=== PATIENT | female | born 1980 | race Caucasian/White ===

== ENCOUNTER 2016-07-28 18:22 | Emergency (ER) | payer OTHER ==
[2016-07-28] MEDS ORDERED: predniSONE 20 MG TAB ONE (19:40)
[2016-07-28] MEDS ORDERED: ALPRAZolam 0.25 MG TAB ONE (19:42)
[2016-07-28] MEDS ORDERED: diphenhydrAMINE HCl 25 MG CAP ONE (19:47)
[2016-07-28] MEDS ORDERED: Azithromycin 250 MG TAB ONE (19:48)
--- NOTE | 2016-07-28 20:11 | ERRECORD ---
[facility] EMERGENCY RECORD HPI SORE THROAT (19:48 LLDO) CHIEF COMPLAINT: Patient presents for evaluation of sore throat, Patient presents for evaluation of see triage note. HISTORIAN: History provided by patient, History provided by patient's spouse. LOCATION: Symptoms are generalized. QUALITY: Pain is dull in nature, described as aching, described as swelling sensation. SEVERITY: Maximum severity of symptoms moderate, Currently symptoms are mild. TIME COURSE: Gradual onset of symptoms, Symptoms are worsening, are constant. ASSOCIATED WITH: No associated fever, No associated chills, No associated cough, No associated drooling, Associated with dysphagia, No associated dysphonia, No associated headache, No associated inability to open mouth, No associated inability to take oral fluids, No associated nasal discharge, No associated recent tooth extraction, No associated shortness of breath, No associated trauma, Associated with upper respiratory infection, No associated vomiting. EXACERBATED BY: Patient's condition exacerbated by activity, Patient's condition exacerbated by food. RELIEVED BY: Patient's condition relieved by cold fluids. ROS CONSTITUTIONAL: Historian denies chills, reports fatigue, denies fever. pt is extremely anxious. has been spending a lot of time on the web, looking up sx.. is terrified she is about to suffocate at any moment. (19:51 LLDO) EYES: Negative eye review of systems, Historian denies eye pain, denies eye redness, denies eye discharge. (19:59 LLDO) ENT: Historian denies drooling, denies dysphonia, reports sore throat. (19:51 LLDO) CARDIOVASCULAR: Historian denies dyspnea on exertion. (19:51 LLDO) RESPIRATORY: Historian denies cough, denies shortness of breath, denies sputum, denies stridor, denies wheezing. (19:51 LLDO) MUSCULOSKELETAL: Negative musculoskeletal review of systems, Historian denies arthralgias, denies back pain, denies injury, denies myalgias, denies neck pain. (19:59 LLDO) SKIN: Negative skin review of systems, Historian denies cellulitis, denies rash, denies skin changes, denies skin lesions. (19:59 LLDO) NEUROLOGIC: Historian denies confusion, denies dizziness, denies dysphasia, denies focal weakness, denies gait changes, denies headache, denies irritability, denies lethargy, denies mental status changes. (19:51 LLDO) HEMO/LYMPHATIC: Normal hematologic/lymphatic system review, Historian denies abnormal blood clotting, denies gum bleeding, denies petechiae. (19:59 LLDO) ALLERGIC/IMMUNOLOGIC: Normal allergy/immunologic system review, &a-1R&a+25V*p+0X*[id number]*c202B*c15G*c2P*p-0X&a-25V&a+1R Name: Joyce Parker : 1980 F36 MedRec: [id number] AcctNum: [id number] Prepared: Pinky Jul 28, 2016 20:18 by Interface Page 1 of 4 pMD [facility] EMERGENCY RECORD Historian denies eczema, denies environmental allergies, denies food allergies. (19:59 LLDO) PSYCHIATRIC: Historian reports anxiety, reports depression, reports emotional lability. (19:51 LLDO) NOTES: All systems reviewed, negative except as described above. (19:51 LLDO) PAST MEDICAL HISTORY MEDICAL HISTORY: Notes: HEP C WITH STAGE II CIRRHOSIS, Tetanus not up to date, Past medical history includes neurological disease, migraine headaches, OVARIAN CYST TO RIGHT OVARY, Notes: SEVERE SINUS "ISSUES". Hepatitis C. reviewed 07-28-16. (18:50 MCRS) FEMALE SURGICAL HISTORY: Surgical history of tubal ligation. D<LT>LT>AMP>C., upper GI and lower GI endoscopy, choleysystectomy on 01/08/2016. reviewed 07-28-16. (18:50 MCRS) PSYCHIATRIC HISTORY: Notes: BI-POLAR, anxiety. reviewed 07-28-16. (18:50 MCRS) SOCIAL HISTORY: Patient denies alcohol use, Patient is a former drug user, abused opiate, Patient currently uses tobacco, smokes cigarettes, daily, Patient has smoked for 25 years, Patient smokes 1 pack per day, Lives at home, with family, former vicodin user. 3 years ago. reviewed 07-28-16. (18:50 MCRS) FAMILY HISTORY: Family history is non-contributory to this case. (18:50 MCRS) NOTES: Nursing records reviewed, Agree with nursing records, Medication list reviewed. (19:59 LLDO) KNOWN ALLERGIES Penicillins CURRENT MEDICATIONS QUEtiapine: TABLET : Strength - 100 mg : ORAL Patient Dose: 1 tab(s) Oral once a day (at bedtime). (18:36 MCRS) lamoTRIgine: TABLET : Strength - 150 mg : ORAL Patient Dose: 1 tab(s) Oral once a day. (18:37 MCRS) VITAL SIGNS (18:29 MCRS) VITAL SIGNS: BP: 177/91 (Sitting), Pulse: 74, Resp: 24, Temp: 97.7 (Tympanic), Pain: 0, O2 sat: 100 on Room Air, Time: 07/28/2016 18:29. PHYSICAL EXAM CONSTITUTIONAL: Vital Signs Reviewed, Patient afebrile, Pulse normal, Blood pressure, BP ELEVATED, Respiratory rate, increased, 24, Patient appears, uncomfortable, Patient &a-1R&a+25V*p+0X*c4584K*c202B*c15G*c2P*p-0X&a-25V&a+1R Name: Joyce Parker : 1980 F36 MedRec: [id number] AcctNum: [id number] Prepared: [facility] Jul 28, 2016 20:18 by Interface Page 2 of 4 pMD [facility] EMERGENCY RECORD appears, in mild pain distress, Patient alert and oriented to person, place and time, Nursing notes reviewed. (19:55 LLDO) HEAD: Head exam normal, Head exam included findings of head atraumatic, normocephalic. (19:59 LLDO) EYES: Eye exam normal, Eye exam included findings of eyelids normal to inspection, Pupils equally round and reactive to light, Extraocular muscles intact. (19:59 LLDO) ENT: Ear exam normal, Nose exam normal, Pharynx, injected bilaterally, with swelling bilaterally, symmetrical, Uvula exam normal, Tonsil exam normal, not enlarged, no exudates, Mouth exam normal, Sinus exam included findings of frontal sinuses normal, maxillary sinuses normal, upper airway wide open with no indication of any dangerous swelling or potential airway closure. (19:55 LLDO) NECK: Neck exam included findings of normal range of motion, Trachea midline, Thyroid normal, no meningeal signs, Cervical adenopathy, diffuse, multiple nodes, tender, swollen. (19:55 LLDO) RESPIRATORY CHEST: Respiratory exam included findings of no respiratory distress, Breath sounds clear, Chest exam included findings of chest movement symmetrical, Chest expansion equal. (19:55 LLDO) BACK: Back exam normal, Back exam included findings of normal inspection, range of motion normal. (19:59 LLDO) UPPER EXTREMITY: Upper extremity exam normal, Upper extremity exam included findings of inspection normal, Range of motion normal. (19:59 LLDO) LOWER EXTREMITY: Lower extremity exam normal, Lower extremity exam included findings of inspection normal, Range of motion normal. (19:59 LLDO) NEURO: Neuro exam normal, Neuro exam findings include patient oriented to person, place and time, Speech normal, [place] coma scale 15. (19:59 LLDO) SKIN: Skin exam normal, Skin exam included findings of skin warm, dry, and normal in color, no rash. (19:59 LLDO) PSYCHIATRIC: Psychiatric exam normal, Psychiatric exam included findings of patient oriented to person place and time, Normal affect. (19:59 LLDO) MEDICATION ADMINISTRATION SUMMARY Drug Name: methylPREDNISolone acetate, Dose Ordered: 80 mg, Route: Intramuscular, Status: Given, Time: 19:59 07/28/2016, Drug Name: Xanax, Dose Ordered: 2 mg, Route: Oral, Status: Given, Time: 19:59 07/28/2016, Drug Name: predniSONE oral, Dose Ordered: 60 mg, Route: Oral, Status: Given, Time: 19:58 07/28/2016, Drug Name: Zithromax oral, Dose Ordered: 500 mg, Route: Oral, Status: Given, Time: 19:58 07/28/2016, &a-1R&a+25V*p+0X*u7626G*c202B*c15G*c2P*p-0X&a-25V&a+1R Name: Keith Joyce P : 1980 F36 MedRec: [id number] AcctNum: [id number] Prepared: Pinky Jul 28, 2016 20:18 by Interface Page 3 of 4 pMD [facility] EMERGENCY RECORD Drug Name: Benadryl oral, Dose Ordered: 50 mg, Route: Oral, Status: Given, Time: 19:57 07/28/2016, Detailed record available in Medication Service section. PROBLEM LIST No recorded problems DIAGNOSIS (19:44 LLDO) FINAL: PRIMARY: Acute pharyngitis, ADDITIONAL: ACUTE STRESS REACTION. PRESCRIPTION (19:46 LLDO) Ativan oral: TABLET : 1 mg : ORAL : Quantity: 1 Unit: tab(s) Route: ORAL Schedule: every 8 hours PRN Dispense: 30 Unit: tab(s) May substitute. Refills: No Refills . NOTES: No Refills. predniSONE oral: TABLET : 20 mg : ORAL : Quantity: * Unit: Route: ORAL Schedule: See Notes Dispense: 2O May substitute. Refills: No Refills . NOTES: 3 TABS PER DAY FOR 3 DAYS, THEN 2 TABS PER DAY FOR 3 DAYS, THEN ONE TAB PER DAY UNTIL GONE No Refills. Zithromax Z-Morteza: CAPSULE (HARD, SOFT, ETC.) : 250 mg : ORAL : Quantity: * Unit: Route: ORAL Schedule: See Notes Dispense: 1PK May substitute. Refills: No Refills . NOTES: TAKE DIRECTED ON PACKAGE No Refills. DISPOSITION PATIENT: Disposition Type: Discharge, Disposition: *Discharge Home. (19:44 LLDO) Disposition Transport: Car, Condition: Good. (20:11 MCRS) Patient left the department. (20:11 MCRS) [place]: LLDO=MD Maira, Ayan MCRS=SOPHIA [place], [place] &a-1R&a+25V*p+0X*r0088T*c202B*c15G*c2P*p-0X&a-25V&a+1R Name: Joyce Parker : 1980 F36 MedRec: [id number] AcctNum: [id number] Prepared: [facility] Jul 28, 2016 20:18 by Interface Page 4 of 4 pMD MTDD
--- NOTE | 2016-07-28 20:16 | PICIS ---
[facility] (MonJul 28, 2016 18:33 MCRS) TRIAGE NOTES: COMPLAINT OF FEELING LIKE THROAT SWOLLEN ...DIFFICULTY SWALLOWING X2 WEEKS - HAS BECOME PROGRESIVELY WORSE - DENIES PAIN. (MonJul 28, 2016 18:33 MCRS) PATIENT: NAME: Joyce Parker, AGE: 36, GENDER: female, : Sat 1980, TIME OF GREET: MonJul 28, 2016 18:23, PREFERRED LANGUAGE: German, ETHNICITY: Not or , FALL RISK: NO, ECODE BILLING MAP: [facility], SSN: [id number], Zip Code: [address], KG WEIGHT: 74.84, PHONE: , , , PERSON ID: [id number], PCP: DO Jean Hillary. (MonJul 28, 2016 18:33 MCRS) COMPLAINT: THROAT/BREATHING PAIN. (MonJul 28, 2016 18:33 MCRS) ADMISSION: URGENCY: 4 Non Urgent, ADMISSION SOURCE: Home, TRANSPORT: CAR, BED: ED -04. (MonJul 28, 2016 18:33 MCRS) ASSESSMENT: Assessment: complaint of throat swelling and difficulty swallowing x1week... stated she looked this up on the internet and is now very upset.. patient is tearful.. some redness to throat but does not appear swollen, Symptoms began x1 week. (18:50 MCRS) IMMUNIZATIONS: Flu vaccine not up to date, Tetanus not up to date, Pneumococcal vaccine not up to date. (18:50 MCRS) SIRS SCORING: Heart Rate 55-109 (0), Temp range 96.8-101.1 (0), respiratory rate 12-24 (0), Mental Status altered: no (0). (18:50 MCRS) PROVIDERS: TRIAGE NURSE: Wicho Mayfield RN. (Pinky Jul 28, 2016 18:33 MCRS) VITAL SIGNS: BP 177/91, (Sitting), Pulse 74, Resp 24, Temp 97.7, (Tympanic), Pain 0, O2 Sat 100, on Room Air, Time 07/28/2016 18:29. (18:29 MCRS) PREVIOUS VISIT ALLERGIES: Penicillins. (MonJul 28, 2016 18:33 MCRS) Penicillins. (18:50 MCRS) KNOWN ALLERGIES Penicillins CURRENT MEDICATIONS QUEtiapine: TABLET : Strength - 100 mg : ORAL Patient Dose: 1 tab(s) Oral once a day (at bedtime). (18:36 MCRS) lamoTRIgine: TABLET : Strength - 150 mg : ORAL Patient Dose: 1 tab(s) Oral once a day. (18:37 MCRS) VITAL SIGNS (18:29 MCRS) VITAL SIGNS: BP: 177/91 (Sitting), Pulse: 74, Resp: 24, Temp: 97.7 (Tympanic), Pain: 0, O2 sat: 100 on Room Air, Time: 07/28/2016 18:29. &a-1R&a+25V*p+0X*e3835N*c202B*c15G*c2P*p-0X&a-25V&a+1R Name: Joyce Parker Ti : 1980 F36 MedRec: [id number] AcctNum: [id number] Prepared: MonJul 28, 2016 20:24 by Interface Page 1 of 7 pMD [facility] RECORD NURSING ASSESSMENT: ENT (18:51 MCRS) CONSTITUTIONAL: Patient arrives ambulatory, Gait steady, History obtained from patient, Patient appears comfortable, Patient cooperative, Patient alert, Oriented to person, place and time, Skin warm, Skin dry, Skin normal in color, Mucous membranes pink, Mucous membranes moist, Patient is well-groomed, Patient complains of swollen throat - fears throat flap will swell shut. ENT: Ear assessment findings include ear normal to inspection, Uvula normal, Mucous membranes, mildly reddish, and moist, Able to swallow, Speech normal. RESPIRATORY/CHEST: Breath sounds clear, Respiratory assessment findings include respiratory effort easy, Respirations regular, Conversing normally, Neck and chest exam findings include trachea midline, Chest expansion equal, Chest movement symmetrical. NOTES: Emotional support needed and given, Notes: appears anxious. SAFETY: Side rails up, Cart/Stretcher in lowest position, Family at bedside, Call light within reach, Hospital ID band on. MEDICATION ADMINISTRATION SUMMARY Drug Name: methylPREDNISolone acetate, Dose Ordered: 80 mg, Route: Intramuscular, Status: Given, Time: 19:59 07/28/2016, Drug Name: Xanax, Dose Ordered: 2 mg, Route: Oral, Status: Given, Time: 19:59 07/28/2016, Drug Name: predniSONE oral, Dose Ordered: 60 mg, Route: Oral, Status: Given, Time: 19:58 07/28/2016, Drug Name: Zithromax oral, Dose Ordered: 500 mg, Route: Oral, Status: Given, Time: 19:58 07/28/2016, Drug Name: Benadryl oral, Dose Ordered: 50 mg, Route: Oral, Status: Given, Time: 19:57 07/28/2016, Detailed record available in Medication Service section. MEDICATION SERVICE Benadryl oral: Order: Benadryl oral (diphenhydramine HCl) - Dose: 50 mg : Oral Schedule: Now Ordered by: Ayan Rao MD Entered by: Ayan Rao MD [facility] Jul 28, 2016 19:43 , Acknowledged by: Wicho Mayfield RN [facility] Jul 28, 2016 19:51 Documented as given by: Wicho Mayfield RN [facility] Jul 28, 2016 19:57 Patient, Medication, Dose, Route and Time verified prior to administration. Amount given: 50, Site: Medication administered P.O., Patient appears Awake and alert- acceptable, Correct patient, time, route, dose and medication confirmed prior to administration, Patient advised of actions and side-effects prior to administration, Allergies confirmed and medications reviewed prior to administration, Patient in position of comfort, Side rails up, Cart in lowest &a-1R&a+25V*p+0X*t1726K*c202B*c15G*c2P*p-0X&a-25V&a+1R Name: Joyce Parker Ti : 1980 F36 MedRec: [id number] AcctNum: [id number] Prepared: MonJul 28, 2016 20:24 by Interface Page 2 of 7 pMD [facility] RECORD position, Family at bedside. methylPREDNISolone acetate: Order: methylPREDNISolone acetate (methylprednisolone acetate) - Dose: 80 mg : Intramuscular Schedule: Now Ordered by: Ayan Rao MD Entered by: Ayan Rao MD [facility] Jul 28, 2016 19:36 , Acknowledged by: Wicho Mayfield RN [facility] Jul 28, 2016 19:38 Documented as given by: Wicho Mayfield RN [facility] Jul 28, 2016 19:59 Patient, Medication, Dose, Route and Time verified prior to administration. IM medication, Amount given: 80MG, Medication administered to right buttock, Patient appears Awake and alert- acceptable, Correct patient, time, route, dose and medication confirmed prior to administration, Patient advised of actions and side-effects prior to administration, Allergies confirmed and medications reviewed prior to administration, Patient in position of comfort, Side rails up, Cart in lowest position, Family at bedside. predniSONE oral: Order: predniSONE oral (prednisone) - Dose: 60 mg : Oral Schedule: Now Ordered by: Ayan Rao MD Entered by: Aayn Rao MD [facility] Jul 28, 2016 19:37 , Acknowledged by: Wicho Mayfield RN [facility] Jul 28, 2016 19:38 Documented as given by: Wicho Mayfield RN [facility] Jul 28, 2016 19:58 Patient, Medication, Dose, Route and Time verified prior to administration. Amount given: 60MG, Site: Medication administered P.O., Patient appears Awake and alert- acceptable, Correct patient, time, route, dose and medication confirmed prior to administration, Patient advised of actions and side-effects prior to administration, Allergies confirmed and medications reviewed prior to administration, Patient in position of comfort, Side rails up, Cart in lowest position, Family at bedside. Xanax: Order: Xanax (alprazolam) - Dose: 2 mg : Oral Schedule: Now Ordered by: Ayan Rao MD Entered by: Ayan Rao MD [facility] Jul 28, 2016 19:36 , Acknowledged by: Wicho Mayfield RN [facility] Jul 28, 2016 19:38 Documented as given by: Wicho Mayfield RN [facility] Jul 28, 2016 19:59 Patient, Medication, Dose, Route and Time verified prior to administration. Amount given: 2MG, Site: Medication administered P.O., Patient appears Awake and alert- acceptable, Correct patient, time, route, dose and medication confirmed prior to administration, Patient advised of actions and side-effects prior to administration, Allergies confirmed and medications reviewed prior to administration, Patient in position of comfort, Side rails up, Cart in lowest position, Family at bedside. Zithromax oral: Order: Zithromax oral (azithromycin) - Dose: 500 mg : Oral &a-1R&a+25V*p+0X*o1795J*c202B*c15G*c2P*p-0X&a-25V&a+1R Name: Joyce Parker : 1980 F36 MedRec: [id number] AcctNum: [id number] Prepared: [facility] Jul 28, 2016 20:24 by Interface Page 3 of 7 pMD [facility] Schedule: Now Ordered by: Ayan Rao MD Entered by: Ayan Rao MD [facility] Jul 28, 2016 19:41 , Acknowledged by: Wicho Mayfield RN [facility] Jul 28, 2016 19:51 Documented as given by: Wicho Mayfield RN [facility] Jul 28, 2016 19:58 Patient, Medication, Dose, Route and Time verified prior to administration. Amount given: 500MG, Site: Medication administered P.O., Patient appears Awake and alert- acceptable, Correct patient, time, route, dose and medication confirmed prior to administration, Patient advised of actions and side-effects prior to administration, Allergies confirmed and medications reviewed prior to administration, Patient in position of comfort, Side rails up, Cart in lowest position, Family at bedside. HPI SORE THROAT (19:48 LLDO) CHIEF COMPLAINT: Patient presents for evaluation of sore throat, Patient presents for evaluation of see triage note. HISTORIAN: History provided by patient, History provided by patient's spouse. LOCATION: Symptoms are generalized. QUALITY: Pain is dull in nature, described as aching, described as swelling sensation. SEVERITY: Maximum severity of symptoms moderate, Currently symptoms are mild. TIME COURSE: Gradual onset of symptoms, Symptoms are worsening, are constant. ASSOCIATED WITH: No associated fever, No associated chills, No associated cough, No associated drooling, Associated with dysphagia, No associated dysphonia, No associated headache, No associated inability to open mouth, No associated inability to take oral fluids, No associated nasal discharge, No associated recent tooth extraction, No associated shortness of breath, No associated trauma, Associated with upper respiratory infection, No associated vomiting. EXACERBATED BY: Patient's condition exacerbated by activity, Patient's condition exacerbated by food. RELIEVED BY: Patient's condition relieved by cold fluids. ROS CONSTITUTIONAL: Historian denies chills, reports fatigue, denies fever. pt is extremely anxious. has been spending a lot of time on the web, looking up sx.. is terrified she is about to suffocate at any moment. (19:51 LLDO) EYES: Negative eye review of systems, Historian denies eye pain, denies eye redness, denies eye discharge. (19:59 LLDO) ENT: Historian denies drooling, denies dysphonia, reports sore throat. (19:51 LLDO) CARDIOVASCULAR: Historian denies dyspnea on exertion. (19:51 LLDO) RESPIRATORY: Historian denies cough, denies shortness of breath, &a-1R&a+25V*p+0X*s8522K*c202B*c15G*c2P*p-0X&a-25V&a+1R Name: Joyce Parker : 1980 F36 MedRec: [id number] AcctNum: [id number] Prepared: Pinky Jul 28, 2016 20:24 by Interface Page 4 of 7 pMD [facility] REC[facility] denies sputum, denies stridor, denies wheezing. (19:51 LLDO) MUSCULOSKELETAL: Negative musculoskeletal review of systems, Historian denies arthralgias, denies back pain, denies injury, denies myalgias, denies neck pain. (19:59 LLDO) SKIN: Negative skin review of systems, Historian denies cellulitis, denies rash, denies skin changes, denies skin lesions. (19:59 LLDO) NEUROLOGIC: Historian denies confusion, denies dizziness, denies dysphasia, denies focal weakness, denies gait changes, denies headache, denies irritability, denies lethargy, denies mental status changes. (19:51 LLDO) HEMO/LYMPHATIC: Normal hematologic/lymphatic system review, Historian denies abnormal blood clotting, denies gum bleeding, denies petechiae. (19:59 LLDO) ALLERGIC/IMMUNOLOGIC: Normal allergy/immunologic system review, Historian denies eczema, denies environmental allergies, denies food allergies. (19:59 LLDO) PSYCHIATRIC: Historian reports anxiety, reports depression, reports emotional lability. (19:51 LLDO) NOTES: All systems reviewed, negative except as described above. (19:51 LLDO) PAST MEDICAL HISTORY MEDICAL HISTORY: Notes: HEP C WITH STAGE II CIRRHOSIS, Tetanus not up to date, Past medical history includes neurological disease, migraine headaches, OVARIAN CYST TO RIGHT OVARY, Notes: SEVERE SINUS "ISSUES". Hepatitis C. reviewed 07-28-16. (18:50 MCRS) FEMALE SURGICAL HISTORY: Surgical history of tubal ligation. D<LT>LT>AMP>C., upper GI and lower GI endoscopy, choleysystectomy on 01/08/2016. reviewed 07-28-16. (18:50 MCRS) PSYCHIATRIC HISTORY: Notes: BI-POLAR, anxiety. reviewed 07-28-16. (18:50 MCRS) SOCIAL HISTORY: Patient denies alcohol use, Patient is a former drug user, abused opiate, Patient currently uses tobacco, smokes cigarettes, daily, Patient has smoked for 25 years, Patient smokes 1 pack per day, Lives at home, with family, former vicodin user. 3 years ago. reviewed 07-28-16. (18:50 MCRS) FAMILY HISTORY: Family history is non-contributory to this case. (18:50 MCRS) NOTES: Nursing records reviewed, Agree with nursing records, Medication list reviewed. (19:59 LLDO) PHYSICAL EXAM CONSTITUTIONAL: Vital Signs Reviewed, Patient afebrile, Pulse normal, Blood pressure, BP ELEVATED, Respiratory rate, increased, 24, Patient appears, uncomfortable, Patient appears, in mild pain distress, Patient alert and oriented to person, place and time, Nursing notes reviewed. (19:55 &a-1R&a+25V*p+0X*p3646Z*c202B*c15G*c2P*p-0X&a-25V&a+1R Name: Joyce Parker : 1980 F36 MedRec: [id number] AcctNum: [id number] Prepared: Pinky Jul 28, 2016 20:24 by Interface Page 5 of 7 pMD [facility] EM[facility]GENC[facility] RECORD LLDO) HEAD: Head exam normal, Head exam included findings of head atraumatic, normocephalic. (19:59 LLDO) EYES: Eye exam normal, Eye exam included findings of eyelids normal to inspection, Pupils equally round and reactive to light, Extraocular muscles intact. (19:59 LLDO) ENT: Ear exam normal, Nose exam normal, Pharynx, injected bilaterally, with swelling bilaterally, symmetrical, Uvula exam normal, Tonsil exam normal, not enlarged, no exudates, Mouth exam normal, Sinus exam included findings of frontal sinuses normal, maxillary sinuses normal, upper airway wide open with no indication of any dangerous swelling or potential airway closure. (19:55 LLDO) NECK: Neck exam included findings of normal range of motion, Trachea midline, Thyroid normal, no meningeal signs, Cervical adenopathy, diffuse, multiple nodes, tender, swollen. (19:55 LLDO) RESPIRATORY CHEST: Respiratory exam included findings of no respiratory distress, Breath sounds clear, Chest exam included findings of chest movement symmetrical, Chest expansion equal. (19:55 LLDO) BACK: Back exam normal, Back exam included findings of normal inspection, range of motion normal. (19:59 LLDO) UPPER EXTREMITY: Upper extremity exam normal, Upper extremity exam included findings of inspection normal, Range of motion normal. (19:59 LLDO) LOWER EXTREMITY: Lower extremity exam normal, Lower extremity exam included findings of inspection normal, Range of motion normal. (19:59 LLDO) NEURO: Neuro exam normal, Neuro exam findings include patient oriented to person, place and time, Speech normal, [place] coma scale 15. (19:59 LLDO) SKIN: Skin exam normal, Skin exam included findings of skin warm, dry, and normal in color, no rash. (19:59 LLDO) PSYCHIATRIC: Psychiatric exam normal, Psychiatric exam included findings of patient oriented to person place and time, Normal affect. (19:59 LLDO) EVENTS TRANSFER: Triage to Emergency Main ED -04. ([facility] Jul 28, 2016 18:33 MCRS) Removed from Emergency Main ED -04. (20:11 MCRS) PROBLEM LIST No recorded problems DIAGNOSIS (19:44 LLDO) FINAL: PRIMARY: Acute pharyngitis, ADDITIONAL: ACUTE STRESS REACTION. &a-1R&a+25V*p+0X*z4420Z*c202B*c15G*c2P*p-0X&a-25V&a+1R Name: KeithJoyce Ti : 1980 F36 MedRec: [id number] AcctNum: [id number] Prepared: [facility] Jul 28, 2016 20:24 by Interface Page 6 of 7 pMD [facility] EM[facility] RECORD DISPOSITION PATIENT: Disposition Type: Discharge, Disposition: *Discharge Home. (19:44 LLDO) Disposition Transport: Car, Condition: Good. (20:11 MCRS) Patient left the department. (20:11 MCRS) INSTRUCTION (19:47 LLDO) DISCHARGE: PHARYNGITIS, STREP (PRESUMED). [facility] [address] [place] [address], , Follow up with Primary Care Physician as needed. SPECIAL: Follow-up with your PCP. PRESCRIPTION (19:46 LLDO) Ativan oral: TABLET : 1 mg : ORAL : Quantity: 1 Unit: tab(s) Route: ORAL Schedule: every 8 hours PRN Dispense: 30 Unit: tab(s) May substitute. Refills: No Refills . NOTES: No Refills. predniSONE oral: TABLET : 20 mg : ORAL : Quantity: * Unit: Route: ORAL Schedule: See Notes Dispense: 2O May substitute. Refills: No Refills . NOTES: 3 TABS PER DAY FOR 3 DAYS, THEN 2 TABS PER DAY FOR 3 DAYS, THEN ONE TAB PER DAY UNTIL GONE No Refills. Zithromax Z-Morteza: CAPSULE (HARD, SOFT, ETC.) : 250 mg : ORAL : Quantity: * Unit: Route: ORAL Schedule: See Notes Dispense: 1PK May substitute. Refills: No Refills . NOTES: TAKE DIRECTED ON PACKAGE No Refills. ADMIN (20:03 LLDO) DIGITAL SIGNATURE: MD Rao Lloyd. Collado: JONATAN=MD Rao Lloyd MCRS=SOPHIA Mayfield, Wicho &a-1R&a+25V*p+0X*h2059M*c202B*c15G*c2P*p-0X&a-25V&a+1R Name: Joyce Parker : 1980 F36 MedRec: [id number] AcctNum: [id number] Prepared: MonJul 28, 2016 20:24 by Interface Page 7 of 7 pMD [facility] MEDICATION RECONCILIATION You were seen in the Emergency Department on: MonJul 28, 2016 KNOWN ALLERGIES Penicillins MEDICATIONS GIVEN WHILE IN THE EMERGENCY DEPARTMENT Xanax (alprazolam) - Dose: 2 milligram(s) : Oral methylPREDNISolone acetate (methylprednisolone acetate) - Dose: 80 milligram(s) : Intramuscular predniSONE oral (prednisone) - Dose: 60 milligram(s) : Oral Zithromax oral (azithromycin) - Dose: 500 milligram(s) : Oral Benadryl oral (diphenhydramine HCl) - Dose: 50 milligram(s) : Oral HOME MEDICATIONS CONTINUE PRESCRIBED lamoTRIgine : TABLET : Strength - 150 mg : ORAL Continue as prescribed Patient had been takin tab(s) Oral once a day. QUEtiapine : TABLET : Strength - 100 mg : ORAL Continue as prescribed Patient had been takin tab(s) Oral once a day (at bedtime). Notes from the emergency department Reviewed with family Reviewed with patient PRESCRIPTIONS (3) Printed (3) Ativan oral : TABLET : 1 mg : ORAL Quantity: 1, Unit: tab(s), Route: ORAL, Schedule: every 8 hours PRN, Dispense: 30 Unit: tab(s) predniSONE oral : TABLET : 20 mg : ORAL Quantity: *, Unit: *, Route: ORAL, Schedule: See Notes, Dispense: 2O &a-1R&a+25V*p+0X*v1329V*c202B*c15G*c2P*p-0X&a-25V&a+1R Name: Joyce Parker Ti : 1980 F36 MedRec: [id number] AcctNum: [id number] Prepared: MonJul 28, 2016 20:24 by Interface pMD CECILIO
== END 2016-07-28 20:10 | disposition home or self-care (01) ==
LOC: MADERS 18:22
DX: J02.9 Acute pharyngitis, unspecified (principal); F43.0 Acute stress reaction; G43.909 Migraine, unspecified, not intractable, without status migrainosus; F17.210 Nicotine dependence, cigarettes, uncomplicated; Z79.899 Other long term (current) drug therapy
CPT/HCPCS: 96372; J1040; J7506

== ENCOUNTER 2017-05-23 07:48 | Emergency (ER) | payer OTHER, SELFPAY ==
[~2017-05-23 07:48] MED LIST: Sodium Chloride 0.9% 1,000 ML BAG ONE
[2017-05-23] MEDS ORDERED: Fentanyl 100 MCG/2 ML VIAL ONE (08:09)
[2017-05-23] MEDS ORDERED: Famotidine In NaCl 20 mg/50 ml Premix Bag ONE (08:10)
[2017-05-23] MEDS ORDERED: Haloperidol Lactate 5 MG/ML VIAL ONE (08:10)
[2017-05-23] MEDS ORDERED: Ondansetron HCl/PF 4 MG/2 ML Vial ONE (08:10)
[2017-05-23 08:42] LABS: Bilirubin Moderate (Negative); Blood, Urine Negative (Negative); Clarity Clear (Clear); Glucose, Urine (Dipstick) Negative (Negative); Leukocyte Negative (Negative); Nitrite Positive (Negative); Protein, Urine (Dipstick) 100 mg/dL (Neg-Trace); pH, Urine 5.5 (5.0-9.0)
[2017-05-23 08:45] LABS: Specific Gravity, Urine 1.027 (1.002-1.036)
[2017-05-23 08:47] LABS: RBC/HPF 0-3 HPF (0-3); WBC/HPF 0-3 HPF (0-3)
[2017-05-23 08:48] LABS: Bacteria/HPF 2+ HPF (None Seen)
[2017-05-23 08:52] LABS: Pregnancy Test - Urine (BHCG) Negative (Negative); Specific Gravity 1.027 (1.002-1.036)
[2017-05-23 08:53] LABS: Pregu Control Background? CLEAR/WHITE (CLR/WHITE); Pregu Control Bar Appear? YES (CONTROL BAR)
[2017-05-23 08:55] LABS: Methamphetamine Detected (NotDetected)
[2017-05-23 08:56] LABS: Amphetamine Detected (NotDetected); Barbiturates Screen Not Detected (NotDetected); Benzodiazepine Screen Detected (NotDetected); Cocaine Metabolite Screen Not Detected (NotDetected); Medtox Control Line Valid? VALID (VALID); Methadone Not Detected (NotDetected); Opiate Screen Not Detected (NotDetected); Oxycodone Screen Not Detected (NotDetected); Phencyclidine (PCP) Not Detected (NotDetected); THC/Cannabinoid Screen Not Detected (NotDetected); Tricyclic Screen Detected (NotDetected)
[2017-05-23] MEDS ORDERED: Sulfameth/Trimethoprim DS 800-160mg TAB ONE (09:00)
[2017-05-23 09:02] LABS: #Lymphocytes 1.8 thou/uL (1.20-3.40); #Monocytes 0.5 thou/uL (0.11-0.59); #Neutrophils 5.8 thou/uL (1.40-6.50); %Basophils 0.6 % (0.0-1.0); %Eosinophils 0.6 % (0.0-10.0); %Lymphocytes 22.1 % (21.0-51.0); %Monocytes 5.7 % (0.0-10.0); %Neutrophils 71.1 % (42.0-75.0); Hemoglobin 12.6 g/dL (12.0-16.0); Mean Corpuscular HGB CONC 34.3 g/dL (32.0-36.0); Mean Corpuscular Volume 90.3 fl (81.0-99.0); Mean Platelet Volume 7.1 fL (7.4-10.4); Platelet Count 272 thou/uL (130-400); RBC Distribution Width 11.1 % (11.5-14.5); Red Blood Cell (RBC) Count 4.08 mill/uL (4.20-5.40); White Blood Cell (WBC) Count 8.1 thou/uL (4.8-10.8)
[2017-05-23 09:21] LABS: Acetaminophen Less than 6.0 mcg/mL (10.0-30.0); Alcohol Less than 10 mg/dL (Less than 10); Anion Gap 12 mmol/L (10-20); BUN (Urea Nitrogen) 11 mg/dL (7.0-18.7); Calc. Creatinine Clearance 0 mL/min (70-130); Calcium 8.4 mg/dL (7.8-10.44); Carbon Dioxide 23 mmol/L (22-29); Chloride 107 mmol/L (98-107); Estimated GFR-MDRD Greater than 90; Glucose 87 mg/dL (70-105); Lipase 5 U/L (8-78); Potassium 3.1 mmol/L (3.5-5.1); Salicylate Less than 8.0 mg/dL (15.0-30.0); Sodium 139 mmol/L (136-145)
[2017-05-23 09:29] LABS: ALT (SGPT) 18 U/L (8-55); AST (SGOT) 42 U/L (5-34); Albumin 3.5 g/dL (3.5-5.0); Alcohol Less than 10 mg/dL (Less than 10); Alkaline Phosphatase 61 U/L (40-150); Bilirubin, Direct 0.6 mg/dL (0.1-0.3); Bilirubin, Total 1.5 mg/dL (0.2-1.2); Protein, Total 6.1 g/dL (6.0-8.3)
[2017-05-23] MEDS ORDERED: Potassium Chloride 20 MEQ TAB ONE (09:45)
== END 2017-05-23 09:50 | disposition home or self-care (01) ==
LOC: MADERS 07:48
DX: R11.2 Nausea with vomiting, unspecified (principal); K74.60 Unspecified cirrhosis of liver; F31.9 Bipolar disorder, unspecified; F41.9 Anxiety disorder, unspecified; Z79.899 Other long term (current) drug therapy
CPT/HCPCS: 80048; 80076; 80306; 80307; 81003; 81015; 81025; 82150; 83690; 85025; 96365; 96375; J1630; J2405; J3010; J7050

== ENCOUNTER 2018-01-16 19:45 | Emergency (ER) | payer SELFPAY ==
[2018-01-16] MEDS ORDERED: Ketorolac Tromethamine 60 MG/2 ML VIAL ONE (20:38)
[2018-01-16] MEDS ORDERED: diphenhydrAMINE 50 MG/ML VIAL ONE (20:38)
[2018-01-16 20:40] LABS: Bilirubin Negative (Negative); Blood, Urine Trace (Negative); Clarity Clear (Clear); Glucose, Urine (Dipstick) Negative (Negative); Leukocyte Trace (Negative); Nitrite Negative (Negative); Protein, Urine (Dipstick) Negative (Neg-Trace); Specific Gravity, Urine 1.015 (1.005-1.030); Urobilinogen 0.2 mg/dL (0.2-1.0)
[2018-01-16 20:43] LABS: Bacteria/HPF 1+ HPF (None Seen)
[2018-01-16] MEDS ORDERED: Acetaminophen 500 MG TAB ONE (20:45)
[2018-01-16] MEDS ORDERED: Metoclopramide HCl 10 MG/2 ML VIAL ONE (20:45)
[2018-01-16 21:01] LABS: Pregnancy Test - Urine (BHCG) Negative (Negative); Pregu Control Background? CLEAR/WHITE (CLR/WHITE); Pregu Control Bar Appear? YES (CONTROL BAR); Specific Gravity 1.015 (1.002-1.036)
[2018-01-16] MEDS ORDERED: Oseltamivir 75 MG CAP ONE (21:42)
== END 2018-01-16 22:00 | disposition home or self-care (01) ==
LOC: MADERS 19:45
DX: R50.9 Fever, unspecified (principal); G43.909 Migraine, unspecified, not intractable, without status migrainosus; F31.9 Bipolar disorder, unspecified; F41.9 Anxiety disorder, unspecified; F17.210 Nicotine dependence, cigarettes, uncomplicated; Z79.899 Other long term (current) drug therapy
CPT/HCPCS: 81003; 81015; 81025; 87804; 96372; J1200; J1885; J2765

== ENCOUNTER 2019-04-28 15:29 | Emergency (ER) | payer SELFPAY ==
--- NOTE | 2019-04-28 16:08 | RAD ---
EXAM: Chest 2 views: HISTORY: Cough COMPARISON: None. FINDINGS: There is a normal-sized cardiomediastinal silhouette. There is no evidence of consolidation, mass, or pleural effusion. The bones are unremarkable. IMPRESSION: No evidence of acute cardiopulmonary disease
--- NOTE | 2019-04-28 16:14 | RAD ---
EXAM: 3 views of the left shoulder HISTORY: Shoulder pain COMPARISON: None FINDINGS: There is no evidence of acute fracture or dislocation. No degenerative changes are present. No soft tissue swelling is seen. The visualized thorax is unremarkable. IMPRESSION: No evidence of acute osseous abnormality.
== END 2019-04-28 16:42 | disposition home or self-care (01) ==
LOC: MADERS 15:29
DX: R05 Cough (principal); R09.81 Nasal congestion; M25.512 Pain in left shoulder; G43.909 Migraine, unspecified, not intractable, without status migrainosus; F31.9 Bipolar disorder, unspecified; F41.9 Anxiety disorder, unspecified; F17.210 Nicotine dependence, cigarettes, uncomplicated; Z79.899 Other long term (current) drug therapy
CPT/HCPCS: 71046

== ENCOUNTER 2019-06-12 13:43 | Emergency (ER) | payer SELFPAY ==
[2019-06-12 14:43] LABS: Bilirubin Negative (Negative); Blood, Urine Negative (Negative); Clarity Clear (Clear); Glucose, Urine (Dipstick) Negative (Negative); Leukocyte Small (Negative); Nitrite Negative (Negative); Protein, Urine (Dipstick) Negative (Neg-Trace)
[2019-06-12 14:49] LABS: RBC/HPF 0-3 HPF (0-3)
[2019-06-12 14:50] LABS: Bacteria/HPF 1+ HPF (None Seen)
[2019-06-12] MEDS ORDERED: Acetaminophen 500 MG TAB ONE (14:54)
[2019-06-12] MEDS ORDERED: Ketorolac Tromethamine 30 MG/ML VIAL ONE ×2 (14:54→16:14)
[2019-06-12 15:50] LABS: #Eosinphils 0.1 thou/uL (0.0-0.7); #Lymphocytes 1.8 thou/uL (1.20-3.40); #Monocytes 0.3 thou/uL (0.11-0.59); %Basophils 0.8 % (0.0-1.0); %Lymphocytes 35.2 % (21.0-51.0); %Monocytes 5.4 % (0.0-10.0); %Neutrophils 57.6 % (42.0-75.0); Hemoglobin 11.9 g/dL (12.0-16.0); Mean Corpuscular HGB CONC 31.5 g/dL (32.0-36.0); Mean Corpuscular Hemoglobin 29.7 pg (27.0-31.0); Mean Corpuscular Volume 94.1 fL (78.0-98.0); Mean Platelet Volume 6.6 fL (7.4-10.4); Platelet Count 298 thou/uL (130-400); Red Blood Cell (RBC) Count 4.02 mill/uL (4.20-5.40); White Blood Cell (WBC) Count 5.2 thou/uL (4.8-10.8)
[2019-06-12 15:58] LABS: Pregnancy Test - Urine (BHCG) Negative (Negative); Pregu Control Background? CLEAR/WHITE (CLR/WHITE); Pregu Control Bar Appear? YES (CONTROL BAR)
[2019-06-12 16:04] LABS: Anion Gap 15 mmol/L (10-20); BUN (Urea Nitrogen) 11 mg/dL (7.0-18.7); Calc. Creatinine Clearance 0 mL/min (70-130); Calcium 8.9 mg/dL (7.8-10.44); Carbon Dioxide 23 mmol/L (22-29); Chloride 107 mmol/L (98-107); Estimated GFR-MDRD 87; Glucose 86 mg/dL (70-105); Potassium 3.9 mmol/L (3.5-5.1); Sodium 141 mmol/L (136-145)
[2019-06-12] MEDS ORDERED: Diazepam 10 MG/2 ML SYRINGE ONE (16:14)
--- NOTE | 2019-06-12 16:35 | CT ---
CT ABDOMEN AND PELVIS WITHOUT IV CONTRAST: Date: 06/12/19 INDICATION: Back pain. Stone protocol was followed. Comparison made to CT abdomen and pelvis with contrast dated 12/22/18. FINDINGS: Lung bases clear. Liver, spleen, and pancreas are unremarkable. Mild splenomegaly is again seen and is unchanged from p rior exam. Stomach and duodenum unremarkable. Adrenal glands normal. Kidneys unremarkable. There is no evidence of hydronephrosis or urinary calculus. Urinary bladder is contracted and not adequately evaluated. Small bowel loops are normal caliber. Appendix appears normal. Stool and gas throughout the colon. Ao rta normal. Images through pelvis show unremarkable uterus and adnexa. No free fluid. IMPRESSION: No acute abnormality identified. POS: [facility]
== END 2019-06-12 18:13 | disposition short-term general hospital (02) ==
LOC: MADERS 13:43
DX: M54.5 Low back pain (principal); G43.909 Migraine, unspecified, not intractable, without status migrainosus; F41.9 Anxiety disorder, unspecified; F31.9 Bipolar disorder, unspecified; F17.210 Nicotine dependence, cigarettes, uncomplicated; K74.60 Unspecified cirrhosis of liver; Z79.899 Other long term (current) drug therapy
CPT/HCPCS: 36415; 74176; 80048; 81003; 81015; 81025; 85025; 86140; 96372; J1885; J3360

== ENCOUNTER 2019-09-24 01:00 | Emergency (ER) | payer SELFPAY ==
[2019-09-24] MEDS ORDERED: Ketorolac Tromethamine 30 MG/ML VIAL ONE (01:41)
[2019-09-24 02:29] LABS: Bilirubin Negative (Negative); Blood, Urine Large (Negative); Clarity Clear (Clear); Glucose, Urine (Dipstick) Negative (Negative); Leukocyte Large (Negative); Nitrite Negative (Negative); Protein, Urine (Dipstick) 100 mg/dL (Neg-Trace); Urobilinogen 0.2 mg/dL (Less than 2)
[2019-09-24 02:39] LABS: #Basophils 0.1 thou/uL (0.0-0.2); #Eosinphils 0.1 thou/uL (0.0-0.7); #Monocytes 0.6 thou/uL (0.11-0.59); #Neutrophils 7.2 thou/uL (1.40-6.50); %Basophils 1.3 % (0.0-1.0); %Eosinophils 0.8 % (0.0-10.0); %Lymphocytes 26.9 % (21.0-51.0); %Monocytes 5.7 % (0.0-10.0); %Neutrophils 65.3 % (42.0-75.0); Hemoglobin 13.8 g/dL (12.0-16.0); Mean Corpuscular HGB CONC 31.6 g/dL (32.0-36.0); Mean Corpuscular Hemoglobin 29.9 pg (27.0-31.0); Mean Corpuscular Volume 94.8 fL (78.0-98.0); Mean Platelet Volume 7.7 fL (7.4-10.4); Platelet Count 61 thou/uL (130-400); RBC Distribution Width 11.8 % (11.5-14.5); Red Blood Cell (RBC) Count 4.63 mill/uL (4.20-5.40)
[2019-09-24 02:42] LABS: Bacteria/HPF 4+ HPF (None Seen); Squamous Epithelial 0-3 HPF (0-3)
[2019-09-24 02:43] LABS: ALT (SGPT) 29 U/L (8-55); AST (SGOT) 22 U/L (5-34); Albumin 4.3 g/dL (3.5-5.0); Alkaline Phosphatase 117 U/L (40-110); Anion Gap 21 mmol/L (10-20); BUN (Urea Nitrogen) 35 mg/dL (7.0-18.7); Bilirubin, Total 0.5 mg/dL (0.2-1.2); Calc. Creatinine Clearance 0 mL/min (70-130); Calcium 9.1 mg/dL (7.8-10.44); Carbon Dioxide 19 mmol/L (22-29); Chloride 101 mmol/L (98-107); Estimated GFR-MDRD 23; Globulin 3.5 g/dL (2.4-3.5); Glucose 89 mg/dL (70-105); Potassium 3.8 mmol/L (3.5-5.1); Protein, Total 7.8 g/dL (6.0-8.3); Sodium 137 mmol/L (136-145)
[2019-09-24 02:52] LABS: Amphetamine Detected (NotDetected); Barbiturates Screen Not Detected (NotDetected); Benzodiazepine Screen Not Detected (NotDetected); Cocaine Metabolite Screen Not Detected (NotDetected); Medtox Control Line Valid? VALID (VALID); Methadone Not Detected (NotDetected); Methamphetamine Detected (NotDetected); Opiate Screen Detected (NotDetected); Oxycodone Screen Not Detected (NotDetected); Phencyclidine (PCP) Not Detected (NotDetected); THC/Cannabinoid Screen Not Detected (NotDetected); Tricyclic Screen Detected (NotDetected)
[2019-09-24 03:03] LABS: Acetaminophen Less than 6.0 mcg/mL (10.0-30.0); Alcohol Less than 10 mg/dL (Less than 10); Salicylate Less than 8.0 mg/dL (15.0-30.0)
[2019-09-24] MEDS ORDERED: cefTRIAXone\\ROCEPHIN 2 GM VIAL ONE (03:07)
[2019-09-24] MEDS ORDERED: Sodium Chloride 0.9% 1,000 ML BAG ONE (06:40)
[2019-09-24 06:58] LABS: Lactic Acid 2.7 mmol/L (0.5-2.2)
--- NOTE | 2019-09-24 07:22 | RAD ---
Exam: Chest one view HISTORY:Lightheadedness. Pain. Sepsis. Comparison: 05/25/2015 FINDINGS: Cardiac silhouette: Normal Aorta: Unremarkable Pulmonary vessels: Normal Costophrenic angles: Clear LUNGS: No masses or consolidation. Pneumothorax: None Osseous abnormalities: None IMPRESSION: No acute cardiopulmonary process.
== END 2019-09-24 08:50 | disposition short-term general hospital (02) ==
LOC: MADERS 01:00
DX: A41.9 Sepsis, unspecified organism (principal); N30.00 Acute cystitis without hematuria; E86.0 Dehydration; F15.10 Other stimulant abuse, uncomplicated; N28.9 Disorder of kidney and ureter, unspecified; D69.6 Thrombocytopenia, unspecified; F41.1 Generalized anxiety disorder; G43.909 Migraine, unspecified, not intractable, without status migrainosus; F31.9 Bipolar disorder, unspecified; F17.210 Nicotine dependence, cigarettes, uncomplicated; Z79.899 Other long term (current) drug therapy
CPT/HCPCS: 71045; 80053; 80306; 80307; 81003; 81015; 83605; 84484; 85025; 93005; 96361; 96365; 96375; J0696; J1885; J7050

== ENCOUNTER 2020-01-23 18:43 | Emergency (ER) | payer SELFPAY ==
[2020-01-23] MEDS ORDERED: Lidocaine 1% 20 ML MDV ONE (19:53)
[2020-01-23] MEDS ORDERED: Prochlorperazine 10 MG/2 ML VIAL ONE (19:53)
[2020-01-23] MEDS ORDERED: diphenhydrAMINE 50 MG/ML VIAL ONE (19:53)
[2020-01-23] MEDS ORDERED: Pantoprazole 40 MG VIAL ONE (19:53)
--- NOTE | 2020-01-23 20:01 | CT ---
CT HEAD WITHOUT CONTRAST: 01/23/20 HISTORY: Headache. Ventricles have normal size and position. Motion artifact degrades the exam. There is no evidence of intracranial hemorrhage, mass, or infarct. Sinuses and mastoids are clear. IMPRESSION: No acute process identified. POS: [facility]
[2020-01-23] MEDS ORDERED: Sodium Chloride 0.9% 1,000 ML ONE (21:27)
[2020-01-23 21:48] LABS: #Basophils 0.1 thou/uL (0.0-0.2); #Eosinphils 0.1 thou/uL (0.0-0.7); #Lymphocytes 1.7 thou/uL (1.20-3.40); #Monocytes 0.6 thou/uL (0.11-0.59); #Neutrophils 6.2 thou/uL (1.40-6.50); %Eosinophils 0.8 % (0.0-10.0); %Lymphocytes 19.3 % (21.0-51.0); %Monocytes 6.6 % (0.0-10.0); %Neutrophils 72.3 % (42.0-75.0); Hemoglobin 14.4 g/dL (12.0-16.0); Mean Corpuscular HGB CONC 32.6 g/dL (32.0-36.0); Mean Corpuscular Hemoglobin 30.4 pg (27.0-31.0); Mean Corpuscular Volume 93.2 fL (78.0-98.0); Mean Platelet Volume 7.3 fL (7.4-10.4); Platelet Count 309 thou/uL (130-400); RBC Distribution Width 11.8 % (11.5-14.5); Red Blood Cell (RBC) Count 4.73 mill/uL (4.20-5.40); White Blood Cell (WBC) Count 8.6 thou/uL (4.8-10.8)
[2020-01-23 21:56] LABS: BHCG - Serum Negative (NEGATIVE); Pregs Control Background? CLEAR/WHITE (CLR/WHITE); Pregs Control Bar Appear? YES (CONTROL BAR)
[2020-01-23 22:04] LABS: ALT (SGPT) 51 U/L (8-55); AST (SGOT) 57 U/L (5-34); Albumin 4.5 g/dL (3.5-5.0); Alkaline Phosphatase 167 U/L (40-110); Anion Gap 18 mmol/L (10-20); BUN (Urea Nitrogen) 25 mg/dL (7.0-18.7); Bilirubin, Total 1.4 mg/dL (0.2-1.2); Calc. Creatinine Clearance 0 mL/min (70-130); Calcium 9.5 mg/dL (7.8-10.44); Carbon Dioxide 23 mmol/L (22-29); Chloride 95 mmol/L (98-107); Estimated GFR-MDRD 63; Globulin 3.6 g/dL (2.4-3.5); Glucose 79 mg/dL (70-105); Lipase 14 U/L (8-78); Protein, Total 8.1 g/dL (6.0-8.3); Sodium 133 mmol/L (136-145)
[2020-01-23] MEDS ORDERED: Potassium Chloride 20 MEQ TAB ONE (22:34)
[2020-01-23] MEDS ORDERED: NS 0.9% w/ 40 MEQ KCL 1,000 ML IV ONE (22:34)
[2020-01-23 23:19] LABS: CSF, Glucose 56 mg/dl (40-70); CSF, Protein 28 mg/dL (15-40)
[2020-01-23 23:34] LABS: Color Of CSF Supernatant COLORLESS (Colorless); Tube # 2; Unspun CSF Color COLORLESS (Colorless)
[2020-01-23 23:36] LABS: CSF Source CSF; Clarity Clear (Clear); Tube # 1
[2020-01-23 23:36] LABS: CSF Source CSF; Clarity Clear (Clear); Tube # 4
[2020-01-24 01:15] LABS: #Basophils 0.1 thou/uL (0.0-0.2); #Eosinphils 0.1 thou/uL (0.0-0.7); #Lymphocytes 2.1 thou/uL (1.20-3.40); #Monocytes 0.6 thou/uL (0.11-0.59); #Neutrophils 4.5 thou/uL (1.40-6.50); %Basophils 0.9 % (0.0-1.0); %Eosinophils 1.7 % (0.0-10.0); %Lymphocytes 28.4 % (21.0-51.0); Hemoglobin 12.5 g/dL (12.0-16.0); Mean Corpuscular HGB CONC 32.3 g/dL (32.0-36.0); Mean Corpuscular Hemoglobin 30.5 pg (27.0-31.0); Mean Corpuscular Volume 94.4 fL (78.0-98.0); Mean Platelet Volume 7.2 fL (7.4-10.4); Platelet Count 229 thou/uL (130-400); RBC Distribution Width 11.5 % (11.5-14.5); Red Blood Cell (RBC) Count 4.09 mill/uL (4.20-5.40); White Blood Cell (WBC) Count 7.4 thou/uL (4.8-10.8)
[2020-01-24 01:27] LABS: Anion Gap 16 mmol/L (10-20)
[2020-01-24 01:32] LABS: BUN (Urea Nitrogen) 23 mg/dL (7.0-18.7); Calc. Creatinine Clearance 0 mL/min (70-130); Carbon Dioxide 20 mmol/L (22-29); Chloride 106 mmol/L (98-107); Estimated GFR-MDRD 88; Glucose 65 mg/dL (70-105); Potassium 5.1 mmol/L (3.5-5.1); Sodium 137 mmol/L (136-145)
[2020-01-24] MEDS ORDERED: Sodium Chloride 0.9% 1,000 ML ONE (03:06)
[2020-01-24 03:20] LABS: Lactic Acid 0.8 mmol/L (0.5-2.2)
[2020-01-24 05:03] LABS: #Basophils 0.1 thou/uL (0.0-0.2); #Eosinphils 0.1 thou/uL (0.0-0.7); #Lymphocytes 1.8 thou/uL (1.20-3.40); #Monocytes 0.7 thou/uL (0.11-0.59); #Neutrophils 4.3 thou/uL (1.40-6.50); %Eosinophils 1.4 % (0.0-10.0); %Lymphocytes 25.5 % (21.0-51.0); %Monocytes 9.8 % (0.0-10.0); %Neutrophils 62.3 % (42.0-75.0); Hemoglobin 11.9 g/dL (12.0-16.0); Mean Corpuscular HGB CONC 32.6 g/dL (32.0-36.0); Mean Corpuscular Hemoglobin 31.1 pg (27.0-31.0); Mean Corpuscular Volume 95.5 fL (78.0-98.0); Mean Platelet Volume 7.5 fL (7.4-10.4); Platelet Count 234 thou/uL (130-400); RBC Distribution Width 12.1 % (11.5-14.5); Red Blood Cell (RBC) Count 3.83 mill/uL (4.20-5.40); White Blood Cell (WBC) Count 6.9 thou/uL (4.8-10.8)
[2020-01-24 05:09] LABS: Bilirubin Negative (Negative); Blood, Urine Large (Negative); Clarity Cloudy (Clear); Glucose, Urine (Dipstick) 100 mg/dL (Negative); Ketone, Urine 40 mg/dL (Negative); Leukocyte Negative (Negative); Nitrite Positive (Negative); Protein, Urine (Dipstick) 100 mg/dL (Neg-Trace)
[2020-01-24 05:14] LABS: Bacteria/HPF 3+ HPF (None Seen); Squamous Epithelial 0-3 HPF (0-3)
[2020-01-24 05:17] LABS: Anion Gap 13 mmol/L (10-20); BUN (Urea Nitrogen) 21 mg/dL (7.0-18.7); Calc. Creatinine Clearance 0 mL/min (70-130); Calcium 8.1 mg/dL (7.8-10.44); Carbon Dioxide 23 mmol/L (22-29); Chloride 104 mmol/L (98-107); Estimated GFR-MDRD 84; Glucose 69 mg/dL (70-105); Potassium 4.3 mmol/L (3.5-5.1); Sodium 136 mmol/L (136-145)
[2020-01-24 05:18] LABS: Amphetamine Detected (NotDetected); Barbiturates Screen Not Detected (NotDetected); Benzodiazepine Screen Detected (NotDetected); Cocaine Metabolite Screen Not Detected (NotDetected); Medtox Control Line Valid? VALID (VALID); Methadone Not Detected (NotDetected); Methamphetamine Detected (NotDetected); Opiate Screen Detected (NotDetected); Oxycodone Screen Not Detected (NotDetected); Phencyclidine (PCP) Not Detected (NotDetected); THC/Cannabinoid Screen Not Detected (NotDetected); Tricyclic Screen Not Detected (NotDetected)
[2020-01-24] MEDS ORDERED: Nitrofurantoin Monohyd/M-Cryst 100 MG CAP ONE (06:18)
== END 2020-01-24 09:05 | disposition home or self-care (01) ==
LOC: MADERS 18:43
DX: E87.6 Hypokalemia (principal); N30.90 Cystitis, unspecified without hematuria; K92.0 Hematemesis; F15.10 Other stimulant abuse, uncomplicated; F41.9 Anxiety disorder, unspecified; F17.210 Nicotine dependence, cigarettes, uncomplicated; G43.909 Migraine, unspecified, not intractable, without status migrainosus; Z79.899 Other long term (current) drug therapy
CPT/HCPCS: 36415; 36416; 36556; 62270; 70450; 80048; 80053; 80306; 81003; 81015; 82274; 82945; 83605; 83690; 84157; 84703; 85025; 87070; 87205; 89051; 96361; 96365; 96366; 96375; C9113; J0780; J1200; J2001; J3480; J7050

== ENCOUNTER 2020-02-27 01:27 | Observation (INO) | payer SELFPAY ==
[2020-02-27] MEDS ORDERED: Sodium Chloride 0.9% 2,000 ML ONE (01:50)
[2020-02-27 02:20] LABS: BHCG - Serum Negative (NEGATIVE); Pregs Control Background? CLEAR/WHITE (CLR/WHITE); Pregs Control Bar Appear? YES (CONTROL BAR)
[2020-02-27 02:29] LABS: #Eosinphils 0.1 thou/uL (0.0-0.7); #Lymphocytes 1.5 thou/uL (1.20-3.40); #Monocytes 0.4 thou/uL (0.11-0.59); #Neutrophils 5.4 thou/uL (1.40-6.50); %Basophils 0.7 % (0.0-1.0); %Eosinophils 0.7 % (0.0-10.0); %Lymphocytes 20.3 % (21.0-51.0); %Monocytes 5.1 % (0.0-10.0); %Neutrophils 73.3 % (42.0-75.0); Hemoglobin 12.8 g/dL (12.0-16.0); Mean Corpuscular Volume 96.8 fL (78.0-98.0); Mean Platelet Volume 7.1 fL (7.4-10.4); Platelet Count 296 thou/uL (130-400); Red Blood Cell (RBC) Count 4.26 mill/uL (4.20-5.40); White Blood Cell (WBC) Count 7.3 thou/uL (4.8-10.8)
[2020-02-27 02:36] LABS: Anion Gap 15 mmol/L (10-20); BUN (Urea Nitrogen) 15 mg/dL (7.0-18.7); Bilirubin, Total 0.6 mg/dL (0.2-1.2); Calc. Creatinine Clearance 0 mL/min (70-130); Calcium 9.1 mg/dL (7.8-10.44); Carbon Dioxide 24 mmol/L (22-29); Chloride 103 mmol/L (98-107); Estimated GFR-MDRD 54; Glucose 96 mg/dL (70-105); Protein, Total 7.3 g/dL (6.0-8.3); Sodium 139 mmol/L (136-145)
[2020-02-27 02:37] LABS: ALT (SGPT) 13 U/L (8-55); AST (SGOT) 19 U/L (5-34); Albumin 4.1 g/dL (3.5-5.0); Alkaline Phosphatase 93 U/L (40-110); CK (CPK) 84 U/L (29-168); Globulin 3.2 g/dL (2.4-3.5)
[2020-02-27 02:57] LABS: Bilirubin Small (Negative); Blood, Urine Trace (Negative); Clarity Clear (Clear); Glucose, Urine (Dipstick) Negative (Negative); Ketone, Urine Trace mg/dL (Negative); Leukocyte Negative (Negative); Nitrite Negative (Negative); Protein, Urine (Dipstick) 30 mg/dL (Neg-Trace); Specific Gravity, Urine 1.025 (1.005-1.030)
[2020-02-27 03:02] LABS: Bacteria/HPF Rare-Few HPF (None Seen); RBC/HPF 0-3 HPF (0-3); Squamous Epithelial 0-3 HPF (0-3); WBC/HPF 0-3 HPF (0-3)
[2020-02-27] MEDS ORDERED: Sodium Chloride 0.45% 1,000 ML ONE (03:45)
[2020-02-27] MEDS ORDERED: Sodium Chloride 0.9% 1,000 ML BAG ONE (03:45)
[2020-02-27] MEDS ORDERED: Potassium Chloride 20 MEQ TAB ONE (03:50)
[2020-02-27] MEDS ORDERED: Acetaminophen 325 MG TAB PO PRN (06:13)
[2020-02-27] MEDS ORDERED: Ondansetron ODT 4 MG TAB PO PRN (06:13)
[2020-02-27 06:26] VITALS: BMI 39.2
[2020-02-27] MEDS: Sodium Chloride 0.9% 1,000 ML IV SCH ×3 (07:30→22:40)
--- NOTE | 2020-02-27 07:52 | RAD ---
EXAM: Single view of the chest HISTORY: Sepsis COMPARISON: 09/24/2019 FINDINGS: Single view of the chest shows a normal sized cardiomediastinal silhouette. There is no ulices dence of consolidation, mass, or pleural effusion. No acute osseous abnormality. IMPRESSION: No evidence of acute cardiopulmonary disease
[2020-02-27] MEDS ORDERED: lamoTRIgine 25 MG TAB PO SCH (09:00)
[2020-02-27] MEDS ORDERED: Non-Formulary Item 1 EACH (Fluoxetine Hcl [Prozac] 40 MG) PO SCH (09:00)
[2020-02-27] MEDS: FLUoxetine HCl 20 MG CAP PO SCH (09:10)
[2020-02-27] MEDS: lamoTRIgine 25 MG TAB PO SCH (09:11)
[2020-02-27] MEDS: [UNRECOGNIZED DRUG - OTHER] PO SCH (12:21)
[2020-02-27] MEDS: VELPATASVIR PO SCH (12:21)
[2020-02-27] MEDS: SOFOSBUVIR PO SCH (12:21)
[2020-02-27] MEDS: Famotidine 20 MG TAB PO SCH (12:21)
[2020-02-27 14:30] LABS: #Basophils 0.1 thou/uL (0.0-0.2); #Eosinphils 0.1 thou/uL (0.0-0.7); #Lymphocytes 2.3 thou/uL (1.20-3.40); #Monocytes 0.4 thou/uL (0.11-0.59); #Neutrophils 3.3 thou/uL (1.40-6.50); %Basophils 0.9 % (0.0-1.0); %Eosinophils 1.6 % (0.0-10.0); %Lymphocytes 37.6 % (21.0-51.0); %Monocytes 6.5 % (0.0-10.0); %Neutrophils 53.4 % (42.0-75.0); Hemoglobin 12.7 g/dL (12.0-16.0); Mean Corpuscular HGB CONC 31.6 g/dL (32.0-36.0); Mean Corpuscular Hemoglobin 30.4 pg (27.0-31.0); Mean Platelet Volume 7.1 fL (7.4-10.4); Platelet Count 232 thou/uL (130-400); Red Blood Cell (RBC) Count 4.16 mill/uL (4.20-5.40); White Blood Cell (WBC) Count 6.1 thou/uL (4.8-10.8)
[2020-02-27 14:44] LABS: Anion Gap 13 mmol/L (10-20); BUN (Urea Nitrogen) 11 mg/dL (7.0-18.7); Calc. Creatinine Clearance 150 mL/min (70-130); Calcium 8.1 mg/dL (7.8-10.44); Carbon Dioxide 20 mmol/L (22-29); Chloride 111 mmol/L (98-107); Estimated GFR-MDRD 81; Glucose 79 mg/dL (70-105); Potassium 3.5 mmol/L (3.5-5.1); Sodium 140 mmol/L (136-145)
[2020-02-27] MEDS ORDERED: Potassium Chloride 20 MEQ TAB PO SCH (17:15)
[2020-02-27] MEDS ORDERED: Non-Formulary Item 1 EACH (Alprazolam [Xanax] 2 MG) PO SCH (21:00)
[2020-02-27] MEDS ORDERED: QUETIAPINE FUMARATE 200 MG PO SCH (21:00)
[2020-02-27] MEDS ORDERED: ALPRAZolam 0.5 MG TAB PO SCH (21:00)
[2020-02-28 00:33] VITALS: TEMP 97.8
[2020-02-28 05:39] LABS: #Basophils 0.1 thou/uL (0.0-0.2); #Eosinphils 0.1 thou/uL (0.0-0.7); #Lymphocytes 2.7 thou/uL (1.20-3.40); #Monocytes 0.3 thou/uL (0.11-0.59); #Neutrophils 3.5 thou/uL (1.40-6.50); %Basophils 1.1 % (0.0-1.0); %Eosinophils 1.9 % (0.0-10.0); %Lymphocytes 40.2 % (21.0-51.0); %Monocytes 4.5 % (0.0-10.0); %Neutrophils 52.3 % (42.0-75.0); Hemoglobin 13.4 g/dL (12.0-16.0); Mean Corpuscular HGB CONC 33.3 g/dL (32.0-36.0); Mean Corpuscular Hemoglobin 31.6 pg (27.0-31.0); Mean Corpuscular Volume 94.9 fL (78.0-98.0); Platelet Count 230 thou/uL (130-400); RBC Distribution Width 11.9 % (11.5-14.5); Red Blood Cell (RBC) Count 4.24 mill/uL (4.20-5.40); White Blood Cell (WBC) Count 6.7 thou/uL (4.8-10.8)
[2020-02-28 05:42] LABS: Anion Gap 11 mmol/L (10-20); BUN (Urea Nitrogen) 9 mg/dL (7.0-18.7); Calc. Creatinine Clearance 176 mL/min (70-130); Calcium 8.1 mg/dL (7.8-10.44); Carbon Dioxide 23 mmol/L (22-29); Chloride 112 mmol/L (98-107); Estimated GFR-MDRD Greater than 90; Glucose 91 mg/dL (70-105); Potassium 3.4 mmol/L (3.5-5.1); Sodium 143 mmol/L (136-145)
[2020-02-28] MEDS: Sodium Chloride 0.9% 1,000 ML IV SCH (05:59)
--- NOTE | 2020-02-28 06:26 | HP ---
CHIEF COMPLAINT: Dizzy. HISTORY OF PRESENT ILLNESS: The patient is a 39-year-old white female, who has hepatitis C, for which she is under treatment. She has a history of bipolar disorder, anxiety disorder, and chronic low back pain from spinal stenosis. She also has a history of migraine headaches. The patient has been under treatment for hepatitis C, now for 28 days, receiving oral medication called Vosevi. This has been monitored and managed by ballistics expert in [place]. She said since she has been on the medication, she has been having diarrhea and more frequent headaches than usual. She has a history of migraine headaches, but lately they seem to be a little worse. The diarrhea she describes as having 4 or 5 watery bowel movements a day. This has been pretty stable and has not gotten any worse. The headaches and the diarrhea are very common side effects of the Vosevi. The patient said that last night she had been having a headache, was feeling better and went to shower and then went to bed. She had to get up to go urinate and felt very lightheaded and dizzy. She was afraid that her blood pressure might be low since she had the same symptoms when she was hospitalized in September 2019 for sepsis from a UTI presenting with hypotension. The patient came to the emergency room early on the morning of 02/27/2020 and her initial blood pressure was 79/51 with a pulse of 61. Her temperature was 98.3 and her O2 saturation was 98. She did not have any complaints other than the dizziness. While in the emergency room, the patient received 3 L of IV saline with her blood pressure quickly coming up to 100/69 with a pulse of 52. She said she felt a lot better and the dizziness had gone away. In the emergency room, her blood work showed an H and H of 12.8 and 41.2 with a white cell count of 7300 with 73% segs, 20% lymphocytes, 5% monocytes, and platelet count of 296, 000. Her sodium was 139, potassium was 3.0, BUN was 15, creatinine 1.12. Her GFR was 54, glucose 96, lactic acid 1.7. Her liver panel was all normal. Her creatine kinase was 84. Troponin-I was less than 0.01. Her serum test was negative. Her urinalysis shows specific gravity of 1.025, urine ketones were trace, urine blood was trace, urine nitrite negative, WBC 0-3, RBC 0-3, squamous epithelial cells 0 -3. In the emergency room, the patient received 3 L of fluid and also received potassium chloride 40 mEq p.o. and the patient was then admitted for the hypotension, that had improved with fluids. The patient was seen soon after her admission to her hospital room and she was able to review with me the history of what brought her to the emergency room. She said she had a headache last evening, this got better and then she showered, went to bed, and then got up to urinate and when she did, felt very, very dizzy. She said lately she has been having a lot more headaches and she has a history of migraine headaches, but lately they have seemed more often, I suspect these headaches have been a side effect of her hepatitis C treatment. The patient said that right now after she has had the IV fluids, she feels good. The dizziness has all gone and she is feeling fine. The patient said that she has been having diarrhea, having 4 to 5 watery bowel movements a day since she has been on the Vosevi. She has had no vomiting. She does not think her weight has appreciably changed. PAST MEDICAL HISTORY: The patient has anxiety disorder, bipolar disorder, migraine headaches, hepatitis C, for which she has completed 1st 28 days of oral medication Vosevi. The patient received hepatitis B immunization prior to starting this medication. 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 The patient has been treated in the past for hypertension and she uses furosemide periodically for fluid retention. The patient has a history of polysubstance abuse with cocaine, methamphetamine, and marijuana, but has been off this for sometime. She also has a history of depression and gastroesophageal reflux disease. The patient has had a cholecystectomy in 2015, bilateral tubal ligation in 2002, D and C due to spontaneous miscarriage, history of tobacco abuse. The patient has had liver biopsy, colonoscopy, and EGD. Last menstrual period, the patient said she is presently on her menses. PRESENT MEDICINES: 1. Acetaminophen 325 mg 2 every 4 hours as needed. 2. Zofran orally disintegrating tablets 4 mg every 6 hours p.r.n. 3. Pepcid 20 mg daily. 4. Vosevi 1 daily. 5. Lisinopril 10 mg daily. 6. Fluoxetine 40 mg daily. 7. Alprazolam 2 mg at bedtime. 8. Seroquel 100 mg in the morning and Seroquel 200 mg at bedtime. 9. Lamictal 25 mg daily. ALLERGIES: PENICILLIN. REVIEW OF SYSTEMS: CONSTITUTIONAL: The patient says she has not had any fever. She has had some aches and pains in her arms, but had been told this was side effect of her Vosevi. The patient has had no appreciable change in her weight. HEAD AND NECK: The patient said she has been having a lot more headaches than usual. She has a history of migraine headaches. She has not had any trouble with her ears or nasal congestion or drainage. PULMONARY: No complaints. CARDIOVASCULAR: No complaints. GI: The patient has had no nausea or vomiting. She said she thinks she has been eating good. She has been having diarrhea 4 or 5 watery bowel movements a day since she has been on the Vosevi, well recognized side effect. : Presently on her menses. The patient has had a BTL. MUSCULOSKELETAL: The patient says she has had some aches and pains in her left shoulder. The patient has chronic low back pain from spinal stenosis. Lately, she said she has had more burning sensation there. She used to be on gabapentin, but this had been stopped due to fluid retention. NEUROPSYCHIATRIC: The patient said her depression and anxiety seem to be well controlled. DERMATOLOGIC: No complaint. HABITS: Alcohol, none. Tobacco, less than a pack a day. Illegal drugs, the patient has a history of illegal drug use including cocaine, methamphetamines, and marijuana, but has been off these for a long time and has had no recent use of these. SOCIAL HISTORY: The patient lives with her mom. PHYSICAL EXAMINATION: GENERAL: The patient is a 39-year-old white female, who is sitting up in bed. She is alert, talkative, appears very comfortable, and in no distress. VITAL SIGNS: Temperature of 97.6, pulse 56, respirations 16, O2 saturation 99/ 66. Height 5 feet 8 inches, weight is 221. HEENT: Head; normocephalic and atraumatic. Eyes; pupils are equal, round, and reactive. Ears; TMs are clear. Nose, normal. Mouth and throat, normal. NECK: Carotids are equal and strong. No bruits. Thyroid not enlarged. There is no adenopathy. The patient has an IV access in the left external jugular. LUNGS: Clear with good breath sounds. HEART: Regular rate. No murmurs. ABDOMEN: There is no distention. Bowel sounds are present. Abdomen is soft with no organomegaly. No areas of tenderness. BACK: There is no area of tenderness along the back. There is no rash along the back. EXTREMITIES: Lower extremities; there is no edema. NEUROLOGIC: The patient is alert and oriented x3. Her cranial nerves 2 through 12 are grossly intact. The patient had excellent and equal strength throughout. SKIN: No rash. IMPRESSION: 1. Hypotension. a. Presenting with complaints of dizziness. b. Initial blood pressure 79/51, pulse 61, improved to 100/69 with pulse of 52 after 3 L of saline and resolution of the dizziness. c. Etiology, I suspect this is secondary to dehydration from the chronic diarrhea. d. Improved with IV hydration. 2. Hepatitis C. a. Has completed 28 days of oral Vosevi of a 12-week course. b. Having side effects of increased headaches and diarrhea. 3. Chronic diarrhea since she has been on Vosevi. a. Complicated by dehydration with hypotension and hypokalemia. 4. Headaches. a. Recent increased frequency probably as a side effect of the Vosevi. b. History of migraine headaches. 5. Bipolar disorder, controlled. 6. Anxiety disorder, controlled. 7. Chronic low back pain secondary to spinal stenosis at the L4-L5 level. 8. Cigarette abuse. 9. History of hypertension. PLAN: The patient is doing much better after the hydration. The patient does not have any obvious source of infection nor does her lab studies indicate any infection, blood and urine cultures though have been obtained. I suspect that the hypotension is a result of dehydration from the chronic diarrhea from her Vosevi , that has also created the hypokalemia. We will continue the IV hydration. We will continue potassium supplementation. We will await results of the blood and urine culture. At this time, we will hold off on any IV antibiotics. The patient also has been on antihypertensives, that has contributed to the hypotension along with dehydration, this will be held. She also occasionally will take furosemide 20 mg if needed for edema, this will also be held since it also may have contributed to the fluid loss. CODE STATUS: Full code. Job ID: [id number] [facility]
[2020-02-28 08:30] VITALS: BP 149/91
[2020-02-28] MEDS: lamoTRIgine 25 MG TAB PO SCH (08:36)
[2020-02-28] MEDS: FLUoxetine HCl 20 MG CAP PO SCH (08:36)
[2020-02-28] MEDS ORDERED: Potassium Chloride 20 MEQ TAB PO SCH (09:00)
[2020-02-28] MEDS: Famotidine 20 MG TAB PO SCH (11:26)
[2020-02-28] MEDS: SOFOSBUVIR PO SCH (11:26)
[2020-02-28] MEDS: VELPATASVIR PO SCH (11:26)
[2020-02-28] MEDS: [UNRECOGNIZED DRUG - OTHER] PO SCH (11:26)
--- NOTE | 2020-03-01 08:54 | DIS ---
DATE OF ADMISSION: 02/27/2020 DATE OF DISCHARGE: 02/28/2020 FINAL DIAGNOSES: 1. Dehydration. a. Presenting with dizziness and hypotension. b. Etiology secondary to the chronic diarrhea from the Vosevi in combination with antihypertensive, diuretic and recent heat exposure. c. Resolved with rehydration IV. d. Complicated by mild hypokalemia and mild renal insufficiency that has resolved. 2. Hepatitis C. a. Has completed 28 days of a 12 week course of Vosevi. b. Side effects of the Vosevi have included diarrhea and headaches. 3. Headaches. a. Recent increased frequency due to the side effects of the Vosevi. b. History of migraine headaches. 4. Bipolar disorder, controlled. 5. Anxiety disorder, controlled. 6. Chronic low back pain secondary to spinal stenosis at L4-L5 level. 7. Cigarette abuse. 8. History of hypertension. SUMMARY: The patient is a 39-year-old white female, who has bipolar disorder that is controlled, anxiety disorder controlled, chronic low back pain that is managed and migraine headaches. She has a history of hepatitis C for which she has just completed 28 days of 12 week course of Vosevi. She also has had a history of hypertension for which she has been on lisinopril and also furosemide that she uses on occasion for swelling. The patient presented to the emergency room on the morning of the day of admission, because of severe dizziness. Lately, she said she has been working very hard, has been exposed to a lot of heat and had a lot of swelling plus she has had four five watery bowel movements a day for some time since she has been on the Vosevi. Her initial blood pressure was 79/51 and pulse is 61. She has had no signs of any bleeding. Her urinalysis showed no evidence of infection, but her specific gravity was 1.025, her lactic acid was 1.7, glucose 96, BUN was 15, creatinine 1.12 and potassium was 3.0. H and H were 12.8 and 41.2. Her electrocardiogram showed a normal sinus rhythm with a rate of 63 and normal. Her chest x-ray was clear. The patient did not appear to have any obvious infection. She received 3 units of IV saline and was given potassium chloride 40 mEq p.o. With this, she felt much better and blood pressure risen to 100/69. The patient was admitted for continued IV hydration. She had blood and urine cultures drawn and was continued on oral potassium supplementation. Her lisinopril was stopped and furosemide was not ordered. This was used usually just on an occasion at home. She did very well. She was continued on IV saline at 125 mL/hour. She began urinating much more frequently. She had no more dizziness, was able to get up ad tiki without any difficulty. Her blood pressure continued to do very well. She had no more hypotensive episodes. Her blood pressures stayed around 100, on the evening of 02/26 it was 126/84, manufacturing finance manager was 119/80 and prior to her discharge was 149 /91. Her pulse was 58. Her weight on admission was 221 and on discharge 222. Her followup lab work showed her potassium was 3.4 on the morning of 02/27. Her BUN had dropped from an admission of 15 to 9. Her creatinine dropped from 1.12 to 0.67 and her GFR increased from admission of 54 to a discharge of greater than 90. The patient had no more lightheadedness or dizziness. Her blood cultures had no growth and her urine culture had no growth. Serum test was negative. Her condition improved. Her dizziness had resolved and the hypotension resolved. The patient was felt to have been dehydrated as a result of the chronic diarrhea, the antihypertensive, intermittent use of furosemide and the recent heat exposure and increased sweating. Her lisinopril will be held and I have asked her not to use the furosemide and encouraged her to continue to stay well hydrated, because she will need to stay on her Vosevi for her hepatitis C. Also reviewed with her the heat precautions. DISPOSITION: DIET: Regular diet, would encourage liquids. ACTIVITIES: Ad tiki. Proper heat precautions. MEDICATIONS: 1. Acetaminophen 325 mg two every 4 hours as needed. 2. Alprazolam 2 mg at bedtime. 3. Seroquel 100 mg daily in the morning. 4. Seroquel 200 mg at bedtime. 5. Lamictal 25 mg daily. 6. Vosevi 1 daily. 7. Fluoxetine 40 mg daily. 8. Pepcid 20 mg daily. 9. Potassium chloride extended release 10 mEq daily. FOLLOWUP: The patient will be seen in followup in my office in 2 weeks with a CBC and basic metabolic panel. Job ID: [id number] [facility]
== END 2020-02-28 11:45 | disposition home or self-care (01) ==
LOC: MADERS 01:27 → INTOOBSV 05:27 → UNDOADMIN 05:27 → MADMS 05:27
PROVIDERS: ADMIT Family Medicine; ATTEND Family Medicine
DX: K52.1 Toxic gastroenteritis and colitis (principal); T37.5X5A Adverse effect of antiviral drugs, initial encounter; E86.0 Dehydration; T50.2X5A Adverse effect of carbonic-anhydrase inhibitors, benzothiadiazides and other diuretics, initial encounter; I95.9 Hypotension, unspecified; E87.6 Hypokalemia; N28.9 Disorder of kidney and ureter, unspecified; B19.20 Unspecified viral hepatitis C without hepatic coma; G43.909 Migraine, unspecified, not intractable, without status migrainosus; F31.9 Bipolar disorder, unspecified; F41.9 Anxiety disorder, unspecified; M48.061 Spinal stenosis, lumbar region without neurogenic claudication; G89.29 Other chronic pain; M54.5 Low back pain; F17.210 Nicotine dependence, cigarettes, uncomplicated; I10 Essential (primary) hypertension; F14.11 Cocaine abuse, in remission; F15.11 Other stimulant abuse, in remission; F12.11 Cannabis abuse, in remission; K21.9 Gastro-esophageal reflux disease without esophagitis; Z79.899 Other long term (current) drug therapy; Z88.0 Allergy status to penicillin; Z88.5 Allergy status to narcotic agent; X30.XXXA Exposure to excessive natural heat, initial encounter
CPT/HCPCS: 36415; 51701; 71045; 80048; 80053; 81003; 81015; 82550; 83605; 84484; 84703; 85025; 87040; 87086; 93005; 94760; 96360; 96361; G0378; J7050